=== PATIENT | male | born 2000 | race Caucasian/White ===

== ENCOUNTER 2025-03-03 20:35 | Emergency (ER) | payer MEDICAID ==
[2025-03-03 21:03] VITALS: RESP 18; TEMP 97.9
[2025-03-03] MEDS ORDERED: KETOROLAC 15 MG/ML 1 ML VIAL IM STA (22:47)
--- NOTE | 2025-03-03 22:51 | XR ---
EXAMINATION TYPE: XR ankle complete RT DATE OF EXAM: 03/03/2025 9:14 PM CLINICAL INDICATION:Male, 24 years old with history of pain; PHH, pain COMPARISON: None TECHNIQUE: XR ankle complete RT; ankle is imaged in frontal, lateral and oblique projections. FINDINGS: There is no evidence of acute osseous pathology. No evidence of subluxation or dislocation. Kager's fat pad is intact. No radiopaque foreign bodies are identified. IMPRESSION: 1. No evidence of acute fracture. 2. Subcutaneous swelling around the ankle likely secondary to underlying soft tissue injury. [facility], , 03/03/2025 10:49 PM
--- NOTE | 2025-03-03 23:17 | ED ---
Lower Extremity Injury HPI - General Chief Complaint: Extremity Injury, Lower Stated Complaint: R Ankle Injury Time Seen by Provider: 03/03/25 21:01 Source: patient Mode of arrival: wheelchair Limitations: no limitations - History of Present Illness Initial Comments: 24-year-old male presenting with chief complaint of right ankle pain. Patient states that earlier today he was playing softball and felt a pop. Patient states that he was not moving at the time but he was standing in a crouched position to prepare to run. He is having difficulty with dorsiflexion. He has some swelling to the ankle. - Related Data Allergies Allergy/AdvReac Type Severity Reaction Status Date / Time No Known Allergies Allergy Verified 03/03/25 21:03 Review of Systems ROS Statement: Those systems with pertinent positive or pertinent negative responses have been documented in the HPI. ROS Other: All systems not noted in ROS Statement are negative. Past Medical History Past Medical History: No Reported History History of Any Multi-Drug Resistant Organisms: None Reported Past Surgical History: No Surgical Hx Reported Smoking Status: Never smoker Past Alcohol Use History: None Reported Past Drug Use History: None Reported General Exam Limitations: no limitations General appearance: alert, in no apparent distress Head exam: Present: atraumatic, normocephalic, normal inspection Eye exam: Present: normal appearance, EOMI Neck exam: Present: normal inspection. Absent: meningismus Respiratory exam: Absent: respiratory distress Right Ankle exam: Present: tenderness, swelling. Absent: full ROM Foot/Toe exam: Present: tenderness Neurovascular tendon exam: Present: no vascular compromise Neurological exam: Present: alert, oriented X3 Psychiatric exam: Present: normal affect, normal mood Skin exam: Present: warm, dry, normal color Course Vital Signs 03/03/25 03/03/25 21:00 23:41 Temperature 97.9 F Pulse Rate 109 H 100 Respiratory 18 18 Rate Blood Pressure 146/103 139/94 O2 Sat by Pulse 97 100 Oximetry Procedures - Orthopedic Splinting/Casting Injury #1 Side: right Lower Extremity Injury Location: ankle Lower Extremity Immobilizer: posterior splint Other Orthopedic Equipment: crutches Medical Decision Making - Medical Decision Making Was pt. sent in by a medical professional or institution (, PA, SALES PRODUCER, urgent care, hospital, or fpc...) When possible be specific @ -No Did you speak to anyone other than the patient for history (EMS, parent, family, police, friend...)? What history was obtained from this source @ -No Did you review nursing and triage notes (agree or disagree)? Why? @ -I reviewed and agree with nursing and triage notes Were old charts reviewed (outside hosp., previous admission, EMS record, old EKG, old radiological studies, urgent care reports/EKG's, fpc records)? Report findings @ -No old charts were reviewed Differential Diagnosis (chest pain, altered mental status, abdominal pain women, abdominal pain men, vaginal bleeding, weakness, fever, dyspnea, syncope, headache, dizziness, GI bleed, back pain, seizure, CVA, palpatations, mental health, musculoskeletal)? @ -Differential Musculoskeletal Muscular strain, contusion, ligament sprain, fracture, arthritis, septic arthritis, bursitis, cellulitis, muscle spasm, nerve compression, DVT, arterial occlusion, herpes zoster, electrolyte abnormality, tumor.... This is not meant to be in all inclusive list EKG interpreted by me (3pts min.). @ -As above X-rays interpreted by me (1pt min.). @ -X-ray negative for fracture. Subcutaneous swelling around the ankle likely secondary to underlying soft tissue injury CT interpreted by me (1pt min.). @ -None done U/S interpreted by me (1pt. min.). @ -None done What testing was considered but not performed or refused? (CT, X-rays, U/S, labs)? Why? @ -None What meds were considered but not given or refused? Why? @ -None Did you discuss the management of the patient with other professionals (professionals i.e. , PA, SALES PRODUCER, lab, RT, psych nurse, foster care social worker, transmission calibration engineer, teacher, armored vehicle officer, case maker)? Give summary @ -No Was smoking cessation discussed for >3mins.? @ -No Was critical care preformed (if so, how long)? @ -No Were there social determinants of health that impacted care today? How? (Homelessness, low income, unemployed, alcoholism, drug addiction, transportation, low edu. Level, literacy, decrease access to med. care, retirement, rehab)? @ -No Was there de-escalation of care discussed even if they declined (Discuss DNR or withdrawal of care, Hospice)? DNR status @ -No What co-morbidities impacted this encounter? (DM, HTN, Smoking, COPD, CAD, Cancer, CVA, ARF, Chemo, Hep., AIDS, mental health diagnosis, sleep apnea, morbid obesity)? @ -None Was patient admitted / discharged? Hospital course, mention meds given and route, prescriptions, significant lab abnormalities, going to OR and other pertinent info. @ -24-year-old male presenting with chief complaint of right ankle injury. He felt a pop in the ankle. He is having difficulty with dorsiflexion. He is joyce rovascularly intact. X-ray negative for fracture or dislocation. Description and presentation presents concern for Achilles tendon injury. Patient is placed in a posterior splint with a toe tip. Provided with crutches and instructed to remain nonweightbearing and follow-up with orthopedics. Follow-up with PCP. Report back to ER with any new or worsening symptoms. Discussed return parameters and answered all questions. Patient conveyed verbal understanding and agreed to the plan. I discussed this case in detail with my attending Undiagnosed new problem with uncertain prognosis? @ -No Drug Therapy requiring intensive monitoring for toxicity (Heparin, Nitro, Insulin, Cardizem)? @ -No Were any procedures done? @ -Posterior short leg splint applied Diagnosis/symptom? @ -Achilles tendon sprain Acute, or Chronic, or Acute on Chronic? @ -Acute Uncomplicated (without systemic symptoms) or Complicated (systemic symptoms)? @ -Uncomplicated Side effects of treatment? @ -No Exacerbation, Progression, or Severe Exacerbation? @ -No Poses a threat to life or bodily function? How? (Chest pain, [place], [place], pneumonia, PE, COPD, DKA, ARF, appy, cholecystitis, CVA, Diverticulitis, Homicidal, Suicidal, threat to staff... and all critical care pts) @ -Potential if the patient does not follow-up with orthopedics Disposition Clinical Impression: Achilles tendon sprain Disposition: HOME SELF-CARE Condition: Fair Instructions (If sedation given, give patient instructions): Achilles Tendon Rupture (ED) Additional Instructions: Follow-up with orthopedics. Report back to ER with any new or worsening symptoms. Motrin and Tylenol as needed for pain control. Rest, ice, elevate the leg. Nonweightbearing; use your crutches. Is patient prescribed a controlled substance at d/c from ED?: No Referrals: Lauren,Ever, MD [Primary Care Provider] - 1-2 days Vega Quinteros MD [STAFF PHYSICIAN] - 1-2 days Time of Disposition: 23:17
[2025-03-03 23:42] VITALS: BP 139/94; PULSE 100
== END 2025-03-03 23:43 | disposition home or self-care (01) ==
LOC: EC 20:35 → SUPCPDRO 20:35 → EC 23:43
DX: S86.011A Strain of right Achilles tendon, initial encounter (principal); X50.0XXA Overexertion from strenuous movement or load, initial encounter; Y93.64 Activity, baseball
CPT/HCPCS: 29515; 99285